=== PATIENT | male | born 1975 | race Caucasian/White ===

== ENCOUNTER → 2020-04-29 10:05 | Outpatient (BNVA) | payer OTHER, SELFPAY | PROVIDERS: PCP Internal Medicine; Visit Provider Orthopaedic Surgery | DX: Z76.89 Persons encountering health services in other specified circumstances (principal) ==

== ENCOUNTER 2020-06-05 06:15 | Day surgery (SDC) | payer OTHER, SELFPAY ==
[2020-05-30 09:22] VITALS: BMI 38.0
[2020-06-04 09:29] VITALS: BMI 38.0
--- NOTE | 2020-06-04 10:09 | HO.ANESPROP2 ---
Documented by User: Zoey Rogers 06/04/20 10:10 HPI - Anesthesia Eval Consult details Narrative: 44yo M for Shoulder Arthroscopy,rotator cuff repair [facility] Past Medical History Medical History Asthma Back pain Elevated LFTs Family history of early CAD Hypertriglyceridemia Marijuana use Overweight Partial tear of right subscapularis tendon Shoulder impingement syndrome Shoulder pain, bilateral Wheezing Family History Family History Mother Cancer of breast Father CAD (coronary artery disease) Social History Social History Alcohol intake: never Smoking Status: Former smoker Tobacco Type: Cigarette Use of substances other than those prescribed or required for medical reasons: Yes Substance Use Frequency: Occasionally Advance Directives: No Advance Directives Information Provided: Yes Current occupational status: employed 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 Meds Allergies Allergy/AdvReac Type Severity Reaction Status Date / Time No Known Allergies Allergy Verified 04/29/20 10:59 Home Medications Medication Instructions Recorded Confirmed Type albuterol sulfate 2 mg tablet 2 mg PO Q8H 04/29/20 04/29/20 History ibuprofen 600 mg tablet 600 mg PO Q6H PRN 04/29/20 04/29/20 History albuterol sulfate 2 puff INHALATION Q4H PRN 05/30/20 05/30/20 History Exam Exam Date and Time: June 04, 2020 1009 Height,Weight and Vital Signs: Height 5 ft 10 in Weight 120.202 kg Assessment and Plan Assessment Anesthesia Assessment: Chart Reviewed Documented by User: Sergio Chen MD 06/05/20 08:26 [facility] Past Medical History Medical History Asthma Back pain Elevated LFTs Family history of early CAD Hypertriglyceridemia Marijuana use Overweight Partial tear of right subscapularis tendon Shoulder impingement syndrome Shoulder pain, bilateral Wheezing Family History Family History Mother Cancer of breast Father CAD (coronary artery disease) Social History Social History Alcohol intake: never Smoking Status: Former smoker Tobacco Type: Cigarette Use of substances other than those prescribed or required for medical reasons: Yes Substance Use Frequency: Occasionally Advance Directives: No Advance Directives Information Provided: Yes Current occupational status: employed 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 Meds Allergies Allergy/AdvReac Type Severity Reaction Status Date / Time No Known Allergies Allergy Verified 04/29/20 10:59 Home Medications Medication Instructions Recorded Confirmed Type albuterol sulfate 2 mg tablet 2 mg PO Q8H 04/29/20 04/29/20 History ibuprofen 600 mg tablet 600 mg PO Q6H PRN 04/29/20 04/29/20 History albuterol sulfate 2 puff INHALATION Q4H PRN 05/30/20 05/30/20 History Exam Airway Mallampati Class: III TM Dist: >3cm Neck ROM: Full Loose/Missing/Broken Teeth: No Heart: rrr Lungs: nl Other: ao Assessment and Plan Assessment Anesthesia Assessment: Anesthesia Plan Discussed and Chart Reviewed Final Anesthetic Review NPO: Yes ASA Class: II Final Preanesthetic Review: No Changes in Pt Med Stat, Meds/Allgs Chart Reviewed and Consent Obtained/Reviewed Patient Risk: Intermediate Procedure Risk: Intermediate Anesthetic Plan Anesthetic Plan: GA and Regional Block Disposition: Standard PACU
[2020-06-05 06:35] VITALS: BP 163/92; PULSE 80; RESP 20; TEMP 36.8; O2SAT 94
[2020-06-05] MEDS: Lactated Ringers 1,000 ML 100 ML IVCONT (07:07)
[2020-06-05] MEDS: ceFAZolin Sodium/Dextrose,Iso 2 GM/50 ML PIGGYBACK IV (08:00)
--- NOTE | 2020-06-06 14:51 | OP_ITS ---
SURGEON: Delfino Burgess MD INDICATIONS: A 44-year-old gentleman with ongoing right shoulder pain with MRI suggesting a rotator cuff tear with possible biceps and subscapular involvement. PREOPERATIVE DIAGNOSIS: Right rotator cuff tear. POSTOPERATIVE DIAGNOSIS: Right rotator cuff tear. PROCEDURE PERFORMED: Right shoulder rotator cuff repair with subacromial decompression. ESTIMATED BLOOD LOSS: Minimal. COMPLICATIONS: None known. ANESTHESIA: General and regional. ASSISTANTS: JAMES Clemons. SPECIMENS: FLUIDS: 1 L. PROCEDURE IN DETAIL: The patient was brought to the operating room, placed in beach chair position and prepped and draped in standard sterile fashion. Time-out was called to identify proper site, proper procedure, proper surgeon. IV antibiotics per weight was administered. I began by making a posterolateral stab incision and placed my blunt trocar atraumatically into the glenohumeral joint. I established an outside-in anterosuperior portal and began my diagnostic arthroscopy. He had no glenohumeral osteoarthritis. Labrum was intact. Biceps anchor had a minimal fraying on the undersurface. There was loose tissue adjacent to this coming from undersurface rotator cuff tear. This may have complicated the MRI analysis because there appeared to be no tearing of the biceps and the subscapularis was also similarly intact and pristine. Therefore, I entered the subacromial space and after a brief debridement, there was obvious full-thickness tear of the anterior aspect of the supraspinatus. I used 1 SutureTape and 2 looped sutures to adhere to the pliable cuff. A bur was used to bur down the footprint bed to bleeding bone. I then placed one 5.0 knotless Healicoil laterally and reapproximated the cuff to the footprint. I had excellent compression and was happy with the tension and position of the sutures. I then performed a 5 mm subacromial decompression. I then removed all instrumentation and portals were closed with nylon. The patient was then placed in sterile dressing, extubated, and brought to recovery room in stable condition. There were no known complications. MD WILLIE Manley/TOMÁS / [id number]
== END 2020-06-05 23:59 ==
PROVIDERS: Orthopaedic Surgery; PCP Internal Medicine; Visit Provider Internal Medicine
PROC: (CPT 29805; principal; 2020-06-05 07:30)
DX: S43.81XA Sprain of other specified parts of right shoulder girdle, initial encounter (principal); M75.41 Impingement syndrome of right shoulder; J45.909 Unspecified asthma, uncomplicated; Z87.891 Personal history of nicotine dependence; X58.XXXA Exposure to other specified factors, initial encounter; Y93.9 Activity, unspecified; Y92.9 Unspecified place or not applicable; Y99.8 Other external cause status; M75.101 Unspecified rotator cuff tear or rupture of right shoulder, not specified as traumatic
CPT/HCPCS: 29827; 29826; C1713; J0171; J0690; J1100; J1885; J2250; J3010

== ENCOUNTER → 2020-06-12 12:47 | Outpatient (BNVA) | payer OTHER, SELFPAY | PROVIDERS: PCP Internal Medicine; Visit Provider Physician Assistant | DX: Z76.89 Persons encountering health services in other specified circumstances (principal) ==

== ENCOUNTER → 2020-07-15 09:52 | Outpatient (BNVA) | payer OTHER, SELFPAY | PROVIDERS: Visit Provider Orthopaedic Surgery | DX: Z98.890 Other specified postprocedural states (principal) | CPT/HCPCS: J1100 ==

== ENCOUNTER 2020-08-26 08:07 | Outpatient (REF) | payer OTHER, SELFPAY ==
--- NOTE | ~2020-08-26 | XR_ITS ---
EXAMINATION: XR SHOULDER, RIGHT CLINICAL INFORMATION: Shoulder pain COMPARISON: None TECHNIQUE: Two views of the right shoulder. FINDINGS: No fracture or dislocation. The glenohumeral joint is well aligned. The joint space is maintained. The acromioclavicular joint is grossly intact. Radiopaque anchor noted in the right humeral head. The visualized lung is clear. The visualized ribs are intact. XR/XR shoulder RT min 2V IMPRESSION: No acute abnormality. Appropriate alignment at the shoulder with radiopaque anchor at the humeral head.
== END 2020-08-26 08:08 | disposition home or self-care (01) ==
LOC: HO.HOSX 08:07
PROVIDERS: Visit Provider Orthopaedic Surgery
DX: Z47.89 Encounter for other orthopedic aftercare (principal)
CPT/HCPCS: 73030

== ENCOUNTER 2020-09-02 07:17 | Outpatient (REF) | payer OTHER, SELFPAY ==
[2020-09-02 11:25] LABS: Glucose Urine UA NEG (NEG); Leukocyte Esterase Urine NEG (NEG); Nitrite Urine NEG (NEG); Specific Gravity - Urine 1.025 (1.005-1.025); Urine Blood TRACE (NEG); Urine Ketones NEG (NEG); Urine Protein NEG (NEG-TRACE)
[2020-09-02 11:28] LABS: Appearance Urine CLEAR; Color Urine YELLOW
[2020-09-02 11:46] LABS: RBC Urine 0-2 /HPF (0); Squamous Epithelial Cell Urine TRACE /LPF; WBC Urine 0 /HPF (0-4)
[2020-09-02 11:47] LABS: Alanine Aminotransferase 47 U/L (0-40); Albumin Level 4.6 g/dL (3.5-5.0); Alkaline Phosphatase 72 U/L (39-117); Anion Gap 13 (12-20); Aspartate Amino Transferase 22 U/L (5-37); Bilirubin Total 0.6 mg/dL (0.0-1.0); Blood Urea Nitrogen 15 mg/dL (9-16); Calcium 8.8 mg/dL (8.4-10.2); Carbon Dioxide 29 mmol/L (22-29); Chloride 103 mmol/L (96-108); Cholesterol 247 mg/dL; Estimated Glomerular Filt Rate > 60; Glucose Fasting 89 mg/dL (60-99); HDL Cholesterol 34 mg/dL; Potassium 4.2 mmol/L (3.3-5.1); Sodium 141 mmol/L (135-145); Total Protein 7.4 g/dL (6.5-8.0); Triglycerides 449 mg/dL
[2020-09-02 12:16] LABS: TSH reflex Free T4 1.57 uIU/mL (0.32-4.0)
== END 2020-09-02 07:18 | disposition home or self-care (01) ==
LOC: HO.HMGCLDS 07:17
PROVIDERS: PCP Nurse Practitioner Family; Visit Provider Nurse Practitioner Family
DX: Z00.00 Encounter for general adult medical examination without abnormal findings (principal)
CPT/HCPCS: 36415; 80053; 80061; 81001; 84443

== ENCOUNTER 2020-11-07 07:00 | Outpatient (RCR) | payer OTHER, SELFPAY ==
--- NOTE | 2020-07-16 19:26 | MHC.PT.EP ---
[facility] [place] Office [place] Office [place] Office [address] Sabina Iqbal [address] [phone] F: [phone] F: [phone] F: [phone] F: [phone] Physical Therapy Plan of Care Date of Evaluation: 07/16/20 Date of Surgery: 06/05/20 Diagnosis: R RTC repair 06/05/20. 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 Pt is deemed an appropriate candidate to receive skilled PT in order to address his physical limitations to improve his functional ability. Frequency and Duration: The patient will be seen 2 x / wk x 12 wks. Short Term Goals: In 1 week; initiate HEP with evidence of compliance. In 5 weeks: Full AROM achieved. Mcc Goals: In 12 weeks: Pt will be able to place objects on high shelf with managed Sx; initital: unable. In 12 weeks: Pt will be I with a home program. Treatment Plan: Modalities to reduce pain, spasms and effusion. Manual therapy to restore motion and function. Therapeutic exercise to improve strength and flexibility. Neuromuscular re-education for posture and balance. Therapeutic activities to return to functional activities of daily living. Electronically signed by: Dallas Stock PT. Please sign and return to therapist. Thank you for your referral.
--- NOTE | 2020-11-07 13:38 | MHC.PT.DC ---
[facility] [place] Office [place] Office [place] Office [address] Sabina Iqbal [address] [phone] F: [phone] F: [phone] F: [phone] F: [phone] Physical Therapy Discharge Report Diagnosis: R RTC repair 06/05/20. Date of Surgery: 06/05/20 Date of Evaluation: 07/16/20 Date of Discharge: 11/07/20 Treatments to Date: 32 Cancellations to Date: 0 No Shows to Date: 0 Discharge Status: Improved Function Independent with HEP Discharge Summary: Pt progressed well over last couple weeks with strength and ROM. Issued updated HEP and he expressed intended compliance. Pt progressed well over the course of skilled PT making progress on impairments and functional limitations resulting in an improved quality of life. Pt is I with HEP and appropriate to d/c to HEP at this time. Electronically signed by: Andres Jimenez, PT Please sign and return to therapist. Thank you for your referral.
== END 2020-11-09 09:45 | disposition home or self-care (01) ==
LOC: HO.PTCHIC 07:00
PROVIDERS: PCP Nurse Practitioner Family; Visit Provider Orthopaedic Surgery
DX: Z48.89 Encounter for other specified surgical aftercare (principal)
CPT/HCPCS: 97014; 97110; 97140; 97161